=== PATIENT | female | born 1990 | race American Indian/Alaskan Native ===

== ENCOUNTER 2019-07-14 12:40 | Emergency (ER) | payer SELFPAY ==
--- NOTE | 2019-07-14 13:03 | Emergency Department Report ---
Blank Doc - Documentation Documentation: 29-year-old female that presents with left sided headache and left eye pain. Denies any trauma or any other complaints. Neuro exam within normal limits. This initial assessment/diagnostic orders/clinical plan/treatment(s) is/are subject to change based on patient's health status, clinical progression and re- assessment by fellow clinical providers in the ED. Further treatment and workup at subsequent clinical providers discretion. Patient/guardians urged not to elope from the ED as their condition may be serious if not clinically assessed and managed. Initial orders include: 1- Patient sent to [facility] for further evaluation and treatment 2- CT scan 3- visual testing 4- Tonopen of eyes
[2019-07-14] MEDS ORDERED: SUMAtriptan SUCCINATE 6 MG/0.5 ML INJ SUB-Q ONE (15:44)
--- NOTE | 2019-07-14 15:46 | Emergency Department Report ---
ED Headache HPI - General Chief Complaint: Headache Stated Complaint: PAIN EXTREME/6 DAYS Time Seen by Provider: 07/14/19 13:01 Source: patient, RN notes reviewed Exam Limitations: no limitations - History of Present Illness Initial Comments: This is a 29-year-old female who presents to the emergency room with left-sided headache for 6 days. She reports pain is throbbing intermittent pain. States headache usually stopped for 6-10 minutes and return for 14 hours. She is taking NSAIDs with no improvement of symptoms. She also reports nausea, vomiting, dizziness as associated symptoms. She denies fever, cough, chest pain, shortness of breath, or weakness. Timing/Duration: 1 week, increasing Quality: constant, throbbing Head Injury Location: parietal (left) Recent Head Trauma: no recent headache/trauma Modifying Factors: improves with: exposure to light, medication Associated Symptoms: nausea/vomiting, nasal congestion. denies: confusion, fatigue, facial pain, fever/chills, flushing, loss of consciousness, nasal drainage, numbness in legs/feet, rash, seizures, sinus infection, stiff neck, vision changes, weakness Allergies/Adverse Reactions: Allergies No Known Allergies Allergy (Unverified 07/14/19 12:45) Home Medications: Ambulatory Orders Amoxicillin/Potassium Clav [Augmentin 875-125 Tablet] 1 each PO BID #10 tablet 07/14/19 Fluticasone [Flonase] 1 spray NS QDAY #1 bottle 07/14/19 SUMAtriptan SUCCINATE [Imitrex] 25 mg PO PRN PRN #12 tablet 07/14/19 ED Review of Systems ROS: Stated complaint: PAIN EXTREME/6 DAYS Other details as noted in HPI Constitutional: denies: chills, fever ENT: congestion. denies: ear pain, throat pain, dental pain Respiratory: denies: cough, shortness of breath, wheezing Cardiovascular: denies: chest pain, palpitations Gastrointestinal: nausea, vomiting. denies: abdominal pain, diarrhea Musculoskeletal: denies: back pain, joint swelling, arthralgia Skin: denies: rash, lesions Neurological: headache, vertigo. denies: weakness, paresthesias Psychiatric: denies: anxiety, depression ED Past Medical Hx - Past Medical History Previous Medical History?: No - Social History Smoking Status: Light Tobacco Smoker Substance Use Type: None - Medications Home Medications: Home Medications Medication Instructions Recorded Confirmed Last Taken Type Amoxicillin/Potassium Clav 1 each PO BID #10 tablet 07/14/19 Unknown Rx [Augmentin 875-125 Tablet] Fluticasone [Flonase] 1 spray NS QDAY #1 bottle 07/14/19 Unknown Rx SUMAtriptan SUCCINATE [Imitrex] 25 mg PO PRN PRN #12 tablet 07/14/19 Unknown Rx ED Physical Exam - General Limitations: No Limitations General appearance: alert, in no apparent distress - Eye Eye exam: Present: normal appearance - ENT ENT exam: Present: normal orophraynx, mucous membranes moist, TM's normal bilaterally, normal external ear exam, other (maxillary sinuses TTP, congested turbinates with clear discharge) - Neck Neck exam: Present: normal inspection - Respiratory Respiratory exam: Present: normal lung sounds bilaterally. Absent: respiratory distress - Cardiovascular Cardiovascular Exam: Present: regular rate, normal rhythm. Absent: systolic murmur, diastolic murmur, rubs, gallop - GI/Abdominal GI/Abdominal exam: Present: soft, normal bowel sounds. Absent: distended, tenderness, guarding, rebound, rigid, organomegaly, mass - Neurological Exam Neurological exam: Present: alert, oriented X3, normal gait - Psychiatric Psychiatric exam: Present: normal affect, normal mood - Skin Skin exam: Present: warm, dry, intact, normal color. Absent: rash ED Course Vital Signs 07/14/19 13:01 Temperature 98.3 F Pulse Rate 94 H Respiratory 18 Rate Blood Pressure 120/69 O2 Sat by Pulse 97 Oximetry ED Medical Decision Making - Radiology Data Radiology results: report reviewed CT head/brain wo con INDICATION / CLINICAL INFORMATION: 29 years Female; headache. TECHNIQUE: Routine CT head without contrast. All CT scans at this location are performed using CT dose reduction for ALARA by means of automated exposure control. COMPARISON: None. FINDINGS: BRAIN / INTRACRANIAL CONTENTS: No acute hemorrhage, mass effect, midline shift, hydrocephalus, or acute, large territorial infarct. No chronic infarct or focal atrophy. Normal brain volume and ventricular/sulcal size for age. Folia the cerebellar vermis is prominent. No significant white matter abnormality. Generalized increased CT density seen in the dural venous sinuses showing less than [address] density is seen in the superior sagittal sinus and in both transverse sinuses. I do not see adjacent brain edema. I do not see thrombosed dural venous sinuses. CRANIOCERVICAL JUNCTION: No significant abnormality. ORBITS: No significant abnormality of visualized orbits. SINUSES / MASTOIDS: No significant abnormality of the visualized paranasal sinuses or mastoid air cells. ADDITIONAL FINDINGS: None. IMPRESSION: I do not see an acute parenchymal lesion - Medical Decision Making This is a 29 y.o. female that presents with headache for 6 days. Patient is stable and was examined by me. No significant past medical history. Vitals are stable. Patient has slight distress. Given Imitrex subcutaneous. Reports feeling better after [address] of head obtained and dictated by radiologist. No acute findings. Maxillary sinuses TTP. Although CT scan shows no acute findings patient will still be treated for maxillary sinusitis and headache. Start Imitrex, Augmentin, Flonase. Follow up with PCP in 24-72 hours or return to the emergency room with worsening symptoms. Discharged home in stable condition. Critical care attestation.: If time is entered above; I have spent that time in minutes in the direct care of this critically ill patient, excluding procedure time. ED Disposition Clinical Impression: Nausea and vomiting in adult Acute maxillary sinusitis Qualifiers: Recurrence: non-recurrent Qualified Code(s): J01.00 - Acute maxillary sinusitis, unspecified Migraine Qualifiers: Migraine type: without aura Status migrainosus presence: with status migrainosus Intractability: not intractable Qualified Code(s): G43.001 - Migraine without aura, not intractable, with status migrainosus Disposition: DC- TO HOME OR SELFCARE Is pt being admited?: No Condition: Stable Instructions: Migraine Headache (ED), Sinusitis (ED) Additional Instructions: Take medication at start of headache. Moderate caffeine intake. Eat at scheduled times or 3 meals a day with snacks. Use warm moist compresses over sinuses. Use ibuprofen or Tylenol for pain. Use nasal saline spray. Avoid taking antihistamines. Follow up with primary care provider if fever, short of breath, chest pain, or symptoms do not improve as discussed. Prescriptions: Amoxicillin/Potassium Clav [Augmentin 875-125 Tablet] 1 each PO BID #10 tablet Fluticasone [Flonase] 1 spray NS QDAY #1 bottle SUMAtriptan SUCCINATE [Imitrex] 25 mg PO PRN PRN #12 tablet PRN Reason: Headache Referrals: [facility] [Outside] - 3-5 Days [facility] [Outside] - 3-5 Days [facility] [Outside] - 3-5 Days Forms: Work/School Release Form(ED) Time of Disposition: 17:39
--- NOTE | 2019-07-14 17:08 | Cat Scan Report ---
CT head/brain wo con INDICATION / CLINICAL INFORMATION: 29 years Female; headache. TECHNIQUE: Routine CT head without contrast. All CT scans at this location are performed using CT dos e reduction for ALARA by means of automated exposure control. COMPARISON: None. FINDINGS: BRAIN / INTRACRANIAL CONTENTS: No acute hemorrhage, mass effect, midline shift, hydrocephalus, or acu te, large territorial infarct. No chronic infarct or focal atrophy. Normal brain volume and ventricul ar/sulcal size for age. Folia the cerebellar vermis is prominent. No significant white matter abnorma lity. Generalized increased CT density seen in the dural venous sinuses showing less than [address] increased [address] density is seen in the superior sagittal sinus and in both transverse sinuses. I do not see adjacent brain edema. I do not see thrombosed dural venous sinuses. CRANIOCERVICAL JUNCTION: No significant abnormality. ORBITS: No significant abnormality of visualized orbits. SINUSES / MASTOIDS: No significant abnormality of the visualized paranasal sinuses or mastoid air blossom ls. ADDITIONAL FINDINGS: None. IMPRESSION: I do not see an acute parenchymal lesion Signer Name: Niharika Concepcion MD Signed: 07/14/2019 5:03 PM Workstation Name: [id number]
[2019-07-14 17:30] VITALS: BP 108/58
== END 2019-07-14 17:57 | disposition home or self-care (01) ==
LOC: ED 12:40
DX: J01.00 Acute maxillary sinusitis, unspecified (principal); G43.909 Migraine, unspecified, not intractable, without status migrainosus; F17.200 Nicotine dependence, unspecified, uncomplicated; Z79.899 Other long term (current) drug therapy
CPT/HCPCS: 70450; 96372; J3030

== ENCOUNTER 2019-08-01 06:50 | Emergency (ER) | payer SELFPAY ==
[2019-08-01 06:58] VITALS: BP 109/81
--- NOTE | 2019-08-01 08:51 | Emergency Department Report ---
ED Rash HPI - HPI Chief Complaint: Extremity Problem,Nontraumatic Stated Complaint: BOTH HANDS AND FEET SORE Time Seen by Provider: 08/01/19 07:49 Duration: 3 Days Location: Upper Extremities, Lower Extremities Suspected Cause: Medication Rash Symptoms: Yes Itching, No Facial Swelling, No Tongue/Oral Swelling, No Breathing Difficulties, No Choking Sensation, No Wheezing/Dyspnea, No Peeling, No Blistering, No Fever, No Lightheaded, No Malaise, No Myalgias Severity: moderate Other History: This is a 29-year-old female who presents to the emergency room with redness and itching to both hands and feet for 3 days. Patient states she went to an emergency room in [place] on Monday and had a CT of abdomen and pelvis with IV contrast. Patient states she initially had an allergic reaction and given medication while here. She reports increasing itching and redness to both hands and feet since treatment. Patient denies taking any [id number] antihistamines for symptomatic relief. ED Review of Systems ROS: Stated complaint: BOTH HANDS AND FEET SORE Other details as noted in HPI Constitutional: denies: chills, fever Respiratory: denies: cough, shortness of breath, wheezing Cardiovascular: denies: chest pain, palpitations Gastrointestinal: denies: abdominal pain, nausea, diarrhea Musculoskeletal: denies: back pain, joint swelling, arthralgia Skin: rash (bilateral hands and bilateral feet). denies: lesions Neurological: denies: headache, weakness, paresthesias Psychiatric: denies: anxiety, depression ED Past Medical Hx - Past Medical History Previous Medical History?: Yes Hx Asthma: Yes - Surgical History Past Surgical History?: Yes Additional Surgical History: c sec X2, hernia - Social History Smoking Status: Current Every Day Smoker Substance Use Type: None - Medications Home Medications: Home Medications Medication Instructions Recorded Confirmed Last Taken Type Amoxicillin/Potassium Clav 1 each PO BID #10 tablet 07/14/19 Unknown Rx [Augmentin 875-125 Tablet] Fluticasone [Flonase] 1 spray NS QDAY #1 bottle 07/14/19 Unknown Rx SUMAtriptan SUCCINATE [Imitrex] 25 mg PO PRN PRN #12 tablet 07/14/19 Unknown Rx hydrOXYzine PAMOATE [Vistaril] 25 mg PO Q6HR PRN #15 capsule 08/01/19 Unknown Rx methylPREDNISolone [Medrol 4MG 4 mg PO DAILY #1 tab.ds.pk 08/01/19 Unknown Rx DOSEPAK (21 tabs)] Rash Exam - Exam General: Vital signs noted. No distress. Alert and acting appropriately. HEENT: No Periorbital Edema, No Conjuctival Injection, No Chemosis, No Perioral Edema, No Tongue Edema, No Uvular Edema, No Compromised Airway, No Drooling Lungs: Yes Good Air Exchange (Normal Breath Sounds), No Wheezes, No Ronchi, No Stridor, No Cough, No Labored Respirations, No Retractions, No Use of Accessory Muscles, No Other Abnormal Lung Sounds Heart: Yes Regular, No Murmur Skin: Yes Maculopapular Rash (to bilateral anterior hands and posterior feet, blanchable, erythema, nontender), No Urticarial Rash, No Morbilliform rash, No Bulla(e), No Excoriations, No Weeping, No Tenderness, No Erythema, No Edema, No Encrustations Other: Positive: Abdomen Normal, Neurologic Normal ED Course Vital Signs 08/01/19 06:53 Temperature 97.9 F Pulse Rate 80 Respiratory 12 Rate Blood Pressure 109/81 O2 Sat by Pulse 100 Oximetry ED Medical Decision Making - Medical Decision Making Patient was examined by me. Patient is nontoxic appearing and stable. Vitals are normal. There is a maculopapular rash to bilateral hands and feet with erythema, blanchable, nontender. There are no signs of infection. Rash appear to be an allergic reaction. Given dexamethasone and Benadryl while in the ER. Start vistaril, medrol dose pack. Follow up with PCP. Patient discharged home in stable condition. Critical care attestation.: If time is entered above; I have spent that time in minutes in the direct care of this critically ill patient, excluding procedure time. ED Disposition Clinical Impression: Pruritic erythematous rash, Allergic drug rash Disposition: TO HOME OR SELFCARE Is pt being admited?: No Condition: Stable Instructions: Acute Rash (ED) Additional Instructions: Complete medication as prescribed. It is okay to take benadryl, Zyrtec, Freda for itching. Follow-up with the primary care doctor from the list provided below. Prescriptions: methylPREDNISolone [Medrol 4MG DOSEPAK (21 tabs)] 4 mg PO DAILY #1 tab.ds.pk hydrOXYzine PAMOATE [Vistaril] 25 mg PO Q6HR PRN #15 capsule PRN Reason: Itching Referrals: [facility] [Outside] - 3-5 Days [facility] [Outside] - 3-5 Days [facility] [Outside] - 3-5 Days Forms: Work/School Release Form(ED) Time of Disposition: 08:59
== END 2019-08-01 09:21 | disposition home or self-care (01) ==
LOC: ED 06:50
DX: L29.9 Pruritus, unspecified (principal); J45.909 Unspecified asthma, uncomplicated; F17.200 Nicotine dependence, unspecified, uncomplicated
CPT/HCPCS: 99282